=== PATIENT | male | born 1990 | race Caucasian/White ===

== ENCOUNTER 2024-09-23 08:07 | Emergency (ER) | payer BC, OTHER, SELFPAY ==
[2024-09-23] MEDS ORDERED: DIPHENHYDRAMINE 50 MG/ML VIAL ONE (08:57)
[2024-09-23] MEDS ORDERED: KETOROLAC 30 MG/ML INJ ONE (08:57)
[2024-09-23] MEDS ORDERED: NA CHLORIDE 0.9% 1,000 ML ONE (08:57)
[2024-09-23] MEDS ORDERED: METOCLOPRAMIDE 10 MG/2mL INJ ONE (08:57)
--- NOTE | 2024-09-23 09:16 | RAD REPORT ---
EXAM: CT Head Brain Wo Cont HISTORY: HEADACHE COMPARISON: None TECHNIQUE: Multiple contiguous axial images were obtained for a CT of the brain without contrast. Sag ittal and coronal reformats were performed. One or more of the following dose reduction techniques were used: Automated exposure control, adjus tment of the mA and kV according to patient size, and iterative reconstruction. Unless otherwise specified, incidental findings do not require dedicated imaging follow-up. FINDINGS: No evidence of hydrocephalus, intracranial hemorrhage, or extra-axial fluid collection. The brain is normal in morphology. The calvarium is intact. The visualized paranasal sinuses and mastoid air cells are essentially clear . IMPRESSION: No evidence of acute intracranial abnormality.
--- NOTE | 2024-09-23 11:07 | EDPHYS ---
Physician Documentation [facility] Name: Ronnie Guzman Age: 34 yrs Sex: Male : 1990 Arrival Date: 09/23/2024 Time: 08:07 Bed 11 Private MD: ED Physician Nigel Velez HPI: 09/23 11:11 This 34 yrs old Male presents to ER via Ambulatory with complaints of Headache. ms3 11:11 34-year-old male with no past medical history presents to the emergency department for ms3 a migraine has been ongoing since Monday. Patient states his headache became worse this morning. Patient endorses nausea, vomiting, intermittent chills. Patient denies diarrhea or fevers. Patient states he has taken Excedrin with mild relief. He notes light and noise make his symptoms worse.. Historical: - Allergies: 08:32 No Known Allergies; ll1 - Home Meds: 08:32 None [Active]; ll1 - PMHx: 08:32 None; ll1 - PSHx: 08:32 ankle R; ll1 - Immunization history:: Adult Immunizations up to date. - Infectious Disease History:: Denies. - Social history:: Smoking status: Patient denies any tobacco usage or history of. ROS: 11:11 Constitutional: Negative for fever, and chills. Cardiovascular: Negative for chest ms3 pain, and palpitations. Respiratory: Negative for shortness of breath, cough, wheezing, and pleuritic chest pain, Abdomen/GI: Negative for abdominal pain, nausea, vomiting, diarrhea, and constipation, MS/Extremity: Negative for injury and deformity, 11:11 Neuro: Positive for headache, Exam: 11:11 Constitutional: This is a well developed, well nourished patient who is awake, alert, ms3 and in no acute distress. Cardiovascular: Regular rate and rhythm with a normal S1 and S2. No gallops, murmurs, or rubs. Normal PMI, no JVD. No pulse deficits. Respiratory: Lungs have equal breath sounds bilaterally, clear to auscultation and percussion. No rales, rhonchi or wheezes noted. No increased work of breathing, no retractions or nasal flaring. Abdomen/GI: Soft, non-tender, with normal bowel sounds. No distension or tympany. No guarding or rebound. No evidence of tenderness throughout. Skin: Warm, dry with normal turgor. Normal color with no rashes, no lesions, and no evidence of cellulitis. MS/ Extremity: Pulses equal, no cyanosis. Neurovascular intact. Full, normal range of motion. Vital Signs: 08:32 BP 143 / 100; Pulse 93; Resp 17; Temp 98.4; Pulse Ox 100% ; Weight 127.01 kg; Height 6 ll1 ft. 3 in. ; Pain 7/10; 10:15 BP 129 / 86; Pulse 66; Resp 16 S; Pulse Ox 100% on R/A; aa5 11:12 BP 114 / 79; Pulse 77; Resp 17; Pulse Ox 100% ; Pain 3/10; ll1 08:32 Body Mass Index 35.00 (127.01 kg, 190.5 cm) ll1 08:32 Pain Scale: Adult ll1 11:12 Pain Scale: Adult ll1 MDM: 08:49 Medical Screening Exam initiated ms3 11:11 Differential diagnosis: intracerebral hemorrhage, subarachnoid bleed, tension headache. ms3 Data reviewed: vital signs, nurses notes, radiologic studies, and as a result, I will discharge patient. I considered the following discharge prescriptions or medication management in the emergency department Medications were administered in the Emergency Department. See MAR. Independent interpretation of the following test(s) in the Emergency Department CT Scan: My interpretation is CT head without contrast images reviewed by me do not reveal intracranial hemorrhage.. 11:13 Counseling: I had a detailed discussion with the patient and/or guardian regarding the ms3 historical points, exam findings, and any diagnostic results supporting the discharge/admit diagnosis, radiology results, the need for outpatient follow up, to return to the emergency department if symptoms worsen or persist or if there are any questions or concerns that arise at home. Response to treatment: the patient's symptoms have markedly improved after treatment, and as a result, I will discharge patient. Refusal of service: The patient/guardian displays adequate decision making capability and despite a detailed discussion of alternatives, benefits, risks, and consequences refuses: Lumbar Puncture procedure. Special discussion: I discussed with the patient/guardian in detail that at this point there is no indication for admission to the hospital. It is understood, however, that if the symptoms persist or worsen the patient needs to return immediately for re-evaluation. ED course: Discussed lumbar puncture with patient and he declines. Discussed possibility of missed subarachnoid hemorrhage or infection. Patient understands and accepts risks. All questions were answered. Return precautions discussed include worsening symptoms, or any other concerns. Patient to follow-up with Dr. Amor in 2 to 3 days.. 09/23 08:49 Order name: CT Head Brain wo Cont; Complete Time: 09:19 ms3 Administered Medications: 09:02 Drug: metoCLOPramide IVP 10 mg IVP once; over 1 to 2 minutes Route: IVP; Site: right aa5 hand; 09:15 Follow up: Response: No adverse reaction aa5 09:02 Drug: diphenhydrAMINE IVP 25 mg IVP once Route: IVP; Site: right hand; aa5 09:15 Follow up: Response: No adverse reaction aa5 09:02 Drug: Ketorolac IVP 10 mg 10 mg IVP once Route: IVP; Site: right hand; aa5 09:15 Follow up: Response: No adverse reaction aa5 09:02 Drug: NS 0.9% IV 1000 ml IV at 1000 ml once; to be given as a bolus over 60 minutes aa5 Route: IV; Rate: 1000 ml; Site: right hand; 10:02 Follow up: IV Status: Completed infusion; IV Intake: 1000ml aa5 Disposition Summary: 09/23/24 11:06 Discharge Ordered Notes: Location: Home ms3 Condition: Stable ms3 Diagnosis - Headache ms3 Followup: ms3 - With: Charles Amor DO - When: 2 - 3 days - Reason: Recheck today's complaints Discharge Instructions: - Discharge Summary Sheet ms3 - General Headache Without Cause ms3 Forms: - Medication Reconciliation Form ms3 - Antibiotic Education ms3 - Prescription Opioid Use ms3 - Patient Portal Instructions ms3 - Leadership Thank You Letter ms3 Signatures: Dispatcher [employer] Adriana Cramer RN RN aa5 Danielle Mendoza RN RN ll1 Nigel Velez DO DO ms3
--- NOTE | 2024-09-23 11:07 | ER ---
Nurse's Notes [facility] Name: Ronnie Guzman Age: 34 yrs Sex: Male : 1990 Arrival Date: 09/23/2024 Time: 08:07 Bed 11 Private MD: Diagnosis: Headache Presentation: 09/23 08:32 Chief complaint: Patient states: [place] with N/V since Monday. Coronavirus screen: Client ll1 denies travel out of the [place] in the last 14 days. fatigue, headache, nausea, vomiting. Client presents with at least one sign or symptom that may indicate coronavirus-19. Standard/surgical mask placed on the client. Ebola Screen: Patient denies travel to an Ebola-affected area in the 21 days before illness onset. Initial Sepsis Screen: Does the patient meet any 2 criteria? No. Patient's initial sepsis screen is negative. Does the patient have a suspected source of infection? No. Patient's initial sepsis screen is negative. Risk Assessment: Do you want to hurt yourself or someone else? Patient reports no desire to harm self or others. Onset of symptoms was September 20, 2024. 08:32 Method Of Arrival: Ambulatory ll1 08:32 Acuity: SURINDER 3 ll1 Triage Assessment: 11:13 Headache History: The patient has had previous headaches and this one is similar to ll1 previous episodes. General: Appears in no apparent distress. Pain: Also complains of nausea. Historical: - Allergies: 08:32 No Known Allergies; ll1 - Home Meds: 08:32 None [Active]; ll1 - PMHx: 08:32 None; ll1 - PSHx: 08:32 ankle R; ll1 - Immunization history:: Adult Immunizations up to date. - Infectious Disease History:: Denies. - Social history:: Smoking status: Patient denies any tobacco usage or history of. Screenin:13 [facility] ED Fall Risk Assessment (Adult) History of falling in the last 3 months, ll1 including since admission No falls in past 3 months (0 pts) Confusion or Disorientation No (0 pts) Intoxicated or Sedated No (0 pts) Impaired Gait No (0 pts) Mobility Assist Device Used No (0 pt) Altered Elimination No (0 pt) Score/Fall Risk Level 0 - 2 = Low Risk Maintained a safe environment, Hourly rounding (assess needs \T\ fall precautionary measures) done. Abuse screen: Denies threats or abuse. Nutritional screening: No deficits noted. Tuberculosis screening: No symptoms or risk factors identified. Assessment: 08:40 General: Appears uncomfortable, Behavior is calm, cooperative. Pain: Complains of pain aa5 in base of the skull Pain radiates to whole head and behind eyes Pain currently is 7 out of 10 on a pain scale. Quality of pain is described as pressure, Pain began 2-3 days ago. Is continuous. Neuro: Level of Consciousness is awake, alert, obeys commands, Oriented to person, place, time, situation, Computer Science Instructor are equal bilaterally Moves all extremities. Gait is steady, Speech is normal, Facial symmetry appears normal, Reports headache photophobia sensitive to noise . Cardiovascular: Patient's skin is warm and dry. Respiratory: Airway is patent Respiratory effort is even, unlabored, Respiratory pattern is regular, symmetrical. GI: Abdomen is round non-distended, Bowel sounds present X 4 quads. Abd is soft and non tender X 4 quads. Reports nausea, reports vomiting this morning. : No signs and/or symptoms were reported regarding the genitourinary system. EENT: No signs and/or symptoms were reported regarding the EENT system. Denies nasal congestion, nasal discharge. Derm: Skin is pink, warm \T\ dry. Musculoskeletal: Range of motion: intact in all extremities. 08:45 Reassessment: Pt to CT scan via wheelchair. . aa5 10:00 Reassessment: Pt sleeping with snoring respirations. . aa5 10:15 Reassessment: Patient is alert, oriented x 3, equal unlabored respirations, skin aa5 warm/dry/pink. Patient states feeling better. 10:15 Reassessment: Pt ambulatory to restroom. . aa5 10:43 Reassessment: No changes from previously documented assessment. Patient and/or family ll1 updated on plan of care and expected duration. Pain level reassessed. Patient is alert, oriented x 3, equal unlabored respirations, skin warm/dry/pink. Patient states symptoms have improved. 11:13 Reassessment: No changes from previously documented assessment. Patient and/or family ll1 updated on plan of care and expected duration. Pain level reassessed. Patient is alert, oriented x 3, equal unlabored respirations, skin warm/dry/pink. Patient states feeling better. Vital Signs: 08:32 BP 143 / 100; Pulse 93; Resp 17; Temp 98.4; Pulse Ox 100% ; Weight 127.01 kg; Height 6 ll1 ft. 3 in. ; Pain 7/10; 10:15 BP 129 / 86; Pulse 66; Resp 16 S; Pulse Ox 100% on R/A; aa5 11:12 BP 114 / 79; Pulse 77; Resp 17; Pulse Ox 100% ; Pain 3/10; ll1 08:32 Body Mass Index 35.00 (127.01 kg, 190.5 cm) ll1 08:32 Pain Scale: Adult ll1 11:12 Pain Scale: Adult ll1 ED Course: 08:09 Patient arrived in ED. al6 08:11 Nigel Velez DO is Attending Physician. ms3 08:32 Arm band placed on Patient placed in an exam room, on a stretcher. ll1 08:34 Triage completed. ll1 08:47 Adriana Mueller, RN is Primary Nurse. aa5 08:59 CT Head Brain wo Cont In Process Unspecified. EDMS 09:02 Inserted saline lock: 22 gauge in right hand, using aseptic technique. Flushed with 10 aa5 mL NS. 11:06 Charles Amor DO is Referral Physician. ms3 11:13 No provider procedures requiring assistance completed. IV discontinued, intact, ll1 bleeding controlled, No redness/swelling at site. Pressure dressing applied. 11:14 Patient has correct armband on for positive identification. Bed in low position. ll1 Provided Education on: return to ED for worsening symptoms. Administered Medications: 09:02 Drug: metoCLOPramide IVP 10 mg IVP once; over 1 to 2 minutes Route: IVP; Site: right aa5 hand; 09:15 Follow up: Response: No adverse reaction aa5 09:02 Drug: diphenhydrAMINE IVP 25 mg IVP once Route: IVP; Site: right hand; aa5 09:15 Follow up: Response: No adverse reaction aa5 09:02 Drug: Ketorolac IVP 10 mg 10 mg IVP once Route: IVP; Site: right hand; aa5 09:15 Follow up: Response: No adverse reaction aa5 09:02 Drug: NS 0.9% IV 1000 ml IV at 1000 ml once; to be given as a bolus over 60 minutes aa5 Route: IV; Rate: 1000 ml; Site: right hand; 10:02 Follow up: IV Status: Completed infusion; IV Intake: 1000ml aa5 Medication: 11:14 VIS not applicable for this client. ll1 Intake: 10:02 IV: 1000ml; Total: 1000ml. aa5 Outcome: 11:06 Discharge ordered by . ms3 11:13 Discharged to home ambulatory, 1 11:13 Condition: stable 11:13 Discharge instructions given to patient, Instructed on discharge instructions, follow up and referral plans. Demonstrated understanding of instructions, follow-up care, 11:14 Patient left the ED. ll1 Signatures: Dispatcher [employer] EDAdriana Fermin RN RN aa5 Danielle Mendoza RN RN ll1 Nigel Velez DO DO ms3 Cami Marsh al6
[2024-09-23 11:37] VITALS: TEMP 98.4; O2SAT 100
[2024-09-23 11:44] VITALS: BP 114/79
== END 2024-09-23 11:14 | disposition home or self-care (01) ==
LOC: ER 08:07
DX: R51.9 Headache, unspecified (principal)
CPT/HCPCS: 70450; 96361; 96374; 96375; 99284; J1200; J2765; J7030